=== PATIENT | male | born 1955 | race Caucasian/White ===

== ENCOUNTER 2016-07-07 21:06 | Emergency (ER) | payer SELFPAY ==
[~2016-07-07] VITALS: Ht 175.3 cm; Wt 150.0 kg
[2016-07-08 00:03] VITALS: BP 136/71
[2016-07-08] MEDS ORDERED: HYDROCODONE/APAP 7.5/325MG 1 TAB TABLET PO ONE (00:45)
== END 2016-07-08 01:09 | disposition home or self-care (01) ==
LOC: ER 21:07
DX: M54.9 Dorsalgia, unspecified (principal); G89.29 Other chronic pain; M48.00 Spinal stenosis, site unspecified; Z87.891 Personal history of nicotine dependence
CPT/HCPCS: 99283; Z7610